=== PATIENT | male | born 1955 | race African-American/Black ===

== ENCOUNTER 2019-12-01 08:33 | Outpatient (CLI) | payer BC ==
--- NOTE | 2019-12-01 09:29 | ULT ---
Exam: Right upper quadrant ultrasound: HISTORY: Elevated liver function tests COMPARISON: CT abdomen on 06/03/2013 FINDINGS: Liver: Within normal limits Gallbladder: No evidence of gallbladder calculi, gallbladder wall thickening, or pericholecystic flui d. Common bile duct: The common duct is normal in caliber measuring 0.4 cm in diameter. Pancreas: Limited visualized portions of the pancreas demonstrate a normal sonographic appearance. Right kidney: There is a lobulated appearing complex cystic lesion involving the lateral aspect midpo rtion right kidney which with multiple septations. There is also suggestion of echogenic material in a portion of this cystic lesion. This cystic lesion measures approximately 3.7 cm in maximal dimen sions. This does measure larger in size when compared to prior CT exam in 2013. Given complex appearance of this cystic lesion, follow-up CT abdomen with and without IV contrast is recommended. T he right kidney measures 12 cm in length. IVC: The visualized IVC demonstrates a normal sonographic appearance. IMPRESSION: 1. Complex cystic lesion midportion right kidney with multiple septations and questionable small amou nt of echogenic material within the cystic lesion. This cystic lesion is slightly larger in size when compared to prior CT exam in 2013. Given complex appearance of this cystic lesion, a CT scan abd omen is recommended with and without IV contrast. 2. No gallbladder calculi are seen, and the common duct is normal in caliber.
== END 2019-12-01 08:34 | disposition home or self-care (01) ==
LOC: BICULT 08:33
PROVIDERS: ATTEND Internal Medicine
DX: R78.89 Finding of other specified substances, not normally found in blood (principal); N28.9 Disorder of kidney and ureter, unspecified; R93.421 Abnormal radiologic findings on diagnostic imaging of right kidney
CPT/HCPCS: 76705

== ENCOUNTER 2020-10-13 08:04 | Outpatient (CLI) | payer BC ==
[2020-10-13] MEDS ORDERED: Iopamidol 370 76% 100 ML VIAL ONE (12:59)
== END 2020-10-13 08:05 | disposition home or self-care (01) ==
LOC: BICCT 08:04
PROVIDERS: ATTEND Internal Medicine Gastroenterology
DX: N28.9 Disorder of kidney and ureter, unspecified (principal); N28.1 Cyst of kidney, acquired; K44.9 Diaphragmatic hernia without obstruction or gangrene
CPT/HCPCS: 74170; 82565; Q9967